=== PATIENT | male | born 1975 | race Caucasian/White ===

== ENCOUNTER → 2017-07-05 | Day surgery (SDC) | payer BC ==
[~2017-07-05] VITALS: Ht 182.9 cm; Wt 127.7 kg
[~2017-07-05] MED LIST: AZO URINARY TR1 EACH PO; CIPRO500 MG PO; COLACE100 MG PO; CPAP INH; DITROPAN XL5 MG PO; FLAGYL500 MG PO; FLOMAX0.4 MG PO; NORCO 5-325 TA1 EACH PO
--- NOTE | ~2017-07-05 | OR ---
PATIENT'S NAME: MOISE RANDOLPH [facility] AGE: 41 Y [address] ROOM: [place] [address] LOCATION: [facility] [place] ADMIT DATE: 07/05/2017 OR/Procedure Report DISCHARGE DATE: FAMILY PHYSICIAN: Jaxon Teresa MD ATTENDING PHYSICIAN: KAREEN MARS SURGEON: Kareen Mars MD DIRECT SUPPORT PROFESSIONAL: None. DATE OF PROCEDURE: 07/05/2017 PREOPERATIVE DIAGNOSIS: Right nephrolithiasis. POSTOPERATIVE DIAGNOSIS: Right nephrolithiasis. PROCEDURE: 1. Cystoscopy with placement of indwelling right ureteral stent. 2. Right extracorporeal shockwave lithotripsy. ANESTHESIA ADMINISTERED: Monitored anesthesia care. INDICATIONS FOR PROCEDURE: The patient is a pleasant 41-year-old male with history of prior nephrolithiasis, who had presented recently with right flank pain and was found to have a right 1.3 cm renal calculus. The patient was explained the risks, benefits, indications, and alternatives to the above procedure and wished to proceed and consented freely. DESCRIPTION OF OPERATION: The patient was brought back to the operating room where he was placed on the OR table in the supine position. A surgical time- out was called where the patient identification, surgical site, and procedure was then verified. The patient underwent successful administration of monitored anesthesia care. We also did verify the patient received an IV Levaquin antibiotic within an hour of beginning the procedure. The patient was then moved and placed in a low lithotomy position where his genital area was then prepped and draped in the usual sterile fashion. I carefully advanced the rigid cystoscope easily into the patient's urinary bladder. His anterior and posterior urethra were within normal limits. He did not have any evidence of prostatic hyperplasia. Upon entering to his bladder, full campo cystoscopy was performed. His bladder was negative for any bladder tumors, cellules, or diverticula. There was no evidence of any bladder stones. His ureteral orifices were noted to be in their orthotopic location. I then carefully advanced a Sensor guidewire, cannulating his right ureteral orifice. I advanced the wire up to the patient's right renal pelvis. Of note, I did see the right renal calculus which now appeared to be located within his mid to upper pole calyx. Then, over the wire, I advanced a 4.8-[place] multi- length ureteral stent deploying it, noting a good curl fluoroscopically within the patient's right renal pelvis as well as a good curl visually within the PATIENT'S NAME: AGUSTÍN MOISE Robert [facility] AGE: 41 Y [address] ROOM: [place], [place] [address] LOCATION: [facility] [place] ADMIT DATE: 07/05/2017 OR/Procedure Report DISCHARGE DATE: FAMILY PHYSICIAN: Jaxon Teresa MD ATTENDING PHYSICIAN: KAREEN MARS patient's bladder. I then emptied the patient's bladder. The patient was then taken out of the lithotomy position where he was then transferred over to the recovery bed and then over to the lithotripsy treatment bed in the supine position. We then brought the stone into focal point using fluoroscopy. We then began performing shockwave lithotripsy starting at 14 kilovolts and working up sequentially to 24 kilovolts in energy. Approximately 2400 shocks were delivered to the stone and we had nice fragmentation by fluoroscopic monitoring. The patient was then awoken from monitored anesthesia care. He was then transferred over to the recovery bed and transported to the recovery room in good condition. COMPLICATIONS: None. DRAINS: Indwelling 4.8-[place] multi-length ureteral stent. SPECIMENS: None. FOLLOWUP PLAN: We will plan to have the patient back for followup in Urology Clinic in approximately 3 to 4 weeks with a plain film KUB and possible stent removal with cystoscopy in clinic at that time as long as he does not have any significant large residual fragments remaining on the KUB. KAREEN MARS MD GP/modl /[id number] CC: Moise Reed MD d: 07/05/17 [id number] t: 07/06/17 0859, OPERATIVE SUMMARY
--- NOTE | ~2017-07-05 | HP ---
PATIENT'S NAME: HUBER RANDOLPH [facility] AGE: 41 Y [address] ROOM: [place], [place] [address] LOCATION: [facility] [place] ADMIT DATE: 07/05/2017 History & Physical DISCHARGE DATE: FAMILY PHYSICIAN: Jaxon Teresa MD ATTENDING PHYSICIAN: KAREEN COTA DATE OF SERVICE: 07/05/2017 CHIEF COMPLAINT: Right flank pain. HISTORY OF PRESENT ILLNESS: The patient is a pleasant 41-year-old male with history of recurrent nephrolithiasis in the past, who had presented with right flank pain. He then underwent a CT scan of his abdomen and pelvis on June 30, 2017, with findings including a 1.3 cm right renal pelvis stone. He had also had some associated nausea, but no vomiting. His symptoms started approximately 3 days prior. He also had some associated diarrhea, weakness, and fatigue. He denied any fevers. He had a white blood cell count of 11.7 and serum creatinine level of 0.80. His urinalysis was negative for any nitrites and only trace leukocytes. There was no bacteria on microscopy and he did have 10 to 20 red blood cells per high-powered field. The patient has no further questions or concerns at this time. PAST MEDICAL HISTORY: 1. History of nephrolithiasis. 2. Attention deficit disorder. 3. Depression. 4. Hyperlipidemia. PAST SURGICAL HISTORY: Does report prior history of stent placement and lithotripsy in the past for obstructing renal calculus. SOCIAL HISTORY: The patient is a smoker and smokes approximately 1 pack a day of cigarettes. ALLERGIES: CECLOR, SULFA DRUGS, AND WELLBUTRIN. MEDICATIONS: See hospitalization medication reconciliation. REVIEW OF SYSTEMS: A full 10+ point review of systems was performed with pertinent positive and PATIENT'S NAME: HUBER RANDOLPH [facility] AGE: 41 Y [address] ROOM: [place], [place] [address] LOCATION: [facility] [place] ADMIT DATE: 07/05/2017 History & Physical DISCHARGE DATE: FAMILY PHYSICIAN: Jaxon Teresa MD ATTENDING PHYSICIAN: KAREEN COTA negative findings included in the history of present illness. All other systems reviewed and are otherwise negative. PHYSICAL EXAMINATION: VITAL SIGNS: The patient is afebrile and all other vital signs are stable. CONSTITUTIONAL: No acute distress. Hemodynamically stable. HEENT: Extraocular muscles intact. Mucous membranes moist. No drainage per ears and nose. CARDIAC: Good peripheral perfusion. RESPIRATORY: No audible wheezing or stridor. ABDOMEN: Benign. MUSCULOSKELETAL: Moves all extremities. PSYCHIATRIC: Normal affect and answers questions appropriately. NEUROLOGIC: No focal deficits noted. HEMATOLOGIC: No bruising or active sites of bleeding. IMAGING: I personally reviewed his images on CT scan consistent with findings noted above in history of present illness. IMPRESSION: Right nephrolithiasis. PLAN: I had a long discussion today with the patient regarding his treatment options including observation versus operative intervention (i.e. extracorporeal shockwave lithotripsy versus ureteroscopy with laser lithotripsy). We discussed the risks, benefits, indications, and alternatives. The patient wanted to proceed with extracorporeal shockwave lithotripsy. Also, given the size of the stone, I did recommend concurrent cystoscopy and stent placement. KAREEN COTA MD GP/modl /[id number] CC: Huber Reed MD D: [id number] T: [id number] HISTORY & PHYSICAL
== END ==
LOC: GPOC 07-04 17:00 → GSDC 11:33 → GPOC 17:00
PROC: 0T768DZ Dilation of Right Ureter with Intraluminal Device, Via Natural or Artificial Opening Endoscopic (ICD-10-PCS; principal; 2017-07-05)
PROC: 0TF3XZZ Fragmentation in Right Kidney Pelvis, External Approach (ICD-10-PCS; 2017-07-05)
DX: N20.0 Calculus of kidney (principal); F32.9 Major depressive disorder, single episode, unspecified; F90.9 Attention-deficit hyperactivity disorder, unspecified type; F17.210 Nicotine dependence, cigarettes, uncomplicated; E78.5 Hyperlipidemia, unspecified; G47.33 Obstructive sleep apnea (adult) (pediatric); Z88.2 Allergy status to sulfonamides
CPT/HCPCS: C1769; C2617; J1956; J2001; J7120